=== PATIENT | female | born 1995 | race Caucasian/White ===

== ENCOUNTER 2020-10-13 15:06 | Emergency (ER) | payer OTHER, SELFPAY ==
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
[2020-10-13 15:16] VITALS: BP 133/81; PULSE 90; RESP 16; TEMP 36.4; O2SAT 100
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
[2020-10-13] MEDS: ACETAMINOPHEN 500 MG TABLET 1000 MG PO (16:35)
[2020-10-13] MEDS: ONDANSETRON HCL ODT 4 MG TABLET PO (16:36)
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
[2020-10-13 17:11] VITALS: BP 114/65; PULSE 72; RESP 16; TEMP 37.3; O2SAT 99
== END 2020-10-13 17:10 | disposition home or self-care (01) ==
PROVIDERS: Emergency Provider Emergency Medicine; PCP Emergency Medicine
DX: M62.838 Other muscle spasm (principal); S80.01XA Contusion of right knee, initial encounter; V43.52XA Car driver injured in collision with other type car in traffic accident, initial encounter
CPT/HCPCS: 73562; 99283; A9270

== ENCOUNTER 2021-01-18 08:57 | Emergency (ER) | payer OTHER, SELFPAY ==
[2021-01-18 09:30] VITALS: BP 121/73; PULSE 74; RESP 16; TEMP 36.6; O2SAT 99
--- NOTE | 2021-01-18 09:30 | ED.GENADULT ---
HPI - General Adult General Chief complaint: Skin/Abscess/Foreign Body Stated complaint: lump on back Time Seen by Provider: 01/18/21 09:30 Source: patient and RN notes reviewed Mode of arrival: ambulatory Limitations: no limitations History of Present Illness HPI narrative: 25-year-old female presents with complaints of with redness, tenderness, and swelling to right upper back for the past 5 days. Kiara reports increasing tenderness over the past 5 days. No treatment. Tender to touch. No drainage. History of skin abscess. No fever or chills. No abdominal pain, nausea, and vomiting. Tolerating po intake well. LMP 01/09/2021. Remains active. The patient reports she was diagnosed with COVID-16 July 2020, no recent symptoms. The patient reports she is not waiting for the results of a COVID-19 lab test. The patient reports she do not have weakness or fatigue. The patient reports she do not have a new or worsening cough or shortness of breath. Denies chest pain. The patient reports she do not have any rhinorrhea, congestion, sore throat, loss of taste or smell, and diarrhea. Denies recent traveling. Denies concerns for COVID-19 or exposures been home with limited outdoor exposure except for essential household needs, work, and return home. At this time, patient is not suspected of having COVID-19. Some parts of this dictation were generated by voice recognition software and may contain typographical and/or grammatical inaccuracies. Related Data Allergies Allergy/AdvReac Type Severity Reaction Status Date / Time codeine Allergy Unknown Anxiety Verified 01/18/21 09:22 Contrast Media Allergy Mild Rash Uncoded 01/18/21 09:22 Review of Systems Review of Systems: Narrative: CONSTITUTIONAL: Denies fever, chills, sweats. EYES: Denies visual changes, redness, discharge. ENT: Denies rhinorrhea, congestion, sore throat, otalgia. CARDIOVASCULAR: Denies chest pain, palpitations, edema. RESPIRATORY: Denies dyspnea, wheezing, cough. GASTROINTESTINAL: Denies abdominal pain, nausea, vomiting, diarrhea. SKIN: Denies rash or itching. Right upper back with redness, tenderness, swelling. Denies drainage. MUSCULOSKELETAL: Denies acute back pain, joint pain, or myalgia. NEUROLOGIC: Denies numbness or focal weakness. PSYCHIATRIC: Denies anxiety or depression. All systems reviewed & are unremarkable except as noted in HPI and below. [facility] Past Medical History Medical History (Updated 01/19/21 @ 00:00 by Dinah Mendoza) Anxiety Depression Insomnia PTSD (post-traumatic stress disorder) Surgical History Surgical History (Updated 01/18/21 @ 09:47 by PATRIZIA Kwok) History of cholecystectomy Family History Family History Other Diabetes mellitus Hypertension Social History Social History (Updated 01/18/21 @ 09:47 by PATRIZIA Kwok) Smoking status: Never smoker Tobacco type: cigarettes Second hand tobacco smoke exposure: No Alcohol intake: current Substance use: never Living arrangements: with family Occupation/Education: occupation Gender identity (if verbalized by the patient): Female Sexual Orientation (if Verbalized by the Patient): Straight or Heterosexual Comments At time of signature, I have reviewed and agree with nursing past medical, surgical, social, and family history. Please see nursing chart for further information. There is no relevant family history pertinent to the presenting complaint. Exam Narrative: Exam Narrative: GENERAL: This is a well-nourished, well-developed patient, in no apparent distress. Talking in full sentences without deficit and ambulate with steady gait without dyspnea. HEAD: Normocephalic, atraumatic. EYES: PERRL. Sclera clear/white. Vision is grossly intact. NECK: Neck supple, non-tender without lymphadenopathy, masses or thyromegaly. CARDIOVASCULAR: Regular rate and rhythm without murmurs
== END 2021-01-18 09:56 | disposition home or self-care (01) ==
PROVIDERS: Emergency Provider Nurse Practitioner Family; PCP Emergency Medicine
DX: L98.9 Disorder of the skin and subcutaneous tissue, unspecified (principal); F41.9 Anxiety disorder, unspecified; F32.9 Major depressive disorder, single episode, unspecified
CPT/HCPCS: 99213; G0463

== ENCOUNTER 2022-05-25 12:08 | Emergency (ER) | payer OTHER, SELFPAY ==
[2022-05-25 12:26] VITALS: BP 123/75; PULSE 79; RESP 18; TEMP 37; O2SAT 100
--- NOTE | 2022-05-25 12:38 | ED.URI ---
HPI - URI/Sore Throat General Chief Complaint: Upper Respiratory Infection Stated Complaint: Sore Throat,Headache,Cough Time Seen by Provider: 05/25/22 12:30 History of Present Illness HPI Narrative: Kiara Chowdary is a 26 yo female with a PMH of ADD, anxiety, PTSD, [facility] sore throat runny nose cough and generally not feeling well for the last 3 to 4 days. She was also travel for work and took a COVID rapid test on Saturday which is negative but came here for retesting as she has a large she is supposed to attend on Saturday Had Covid vaccine Related Data Allergies Allergy/AdvReac Type Severity Reaction Status Date / Time codeine Allergy Unknown Anxiety Verified 05/25/22 12:20 Contrast Media Allergy Mild Rash Uncoded 05/25/22 12:20 Review of Systems Review of Systems: CONSTITUTIONAL: Denies fever, chills, sweats. EYES: Denies visual changes, redness, discharge. ENT: Denies rhinorrhea, has congestion, has sore throat, otalgia. CARDIOVASCULAR: Denies chest pain, palpitations, edema. RESPIRATORY: Denies dyspnea, wheezing, has cough GASTROINTESTINAL: Denies abdominal pain, nausea, vomiting, diarrhea. GENITOURINARY: Denies dysuria, hematuria, abnormal discharge SKIN: Denies rash or itching. NEUROLOGIC: Denies numbness, or focal weakness. PSYCHIATRIC: Denies anxiety or depression. [facility] Past Medical History Medical History Anxiety Depression Insomnia PTSD (post-traumatic stress disorder) Surgical History Surgical History History of cholecystectomy Family History Family History Other Diabetes mellitus Hypertension Social History Social History Smoking status: Never smoker Tobacco type: cigarettes Second hand tobacco smoke exposure: No Alcohol intake: current Substance use: never Gender identity (if verbalized by the patient): Female Sexual Orientation (if Verbalized by the Patient): Straight or Heterosexual Comments At time of signature, I agree with nursing past medical, surgical, social and family history. There is no relevant family history pertinent to the presenting complaint. Exam Narrative: GENERAL: This is a well-nourished, well-developed patient, in mild distress. HEAD: normocephalic, atraumatic. EYES: Sclera clear/white. Vision is grossly intact. EARS: External ears normal, auditory canals erythema and without drainage, TMs normal without perforation. Hearing grossly intact. NOSE: External nose normal with nasal discharge, nares without redness, has rhinorrhea. THROAT: Mucous membranes moist, posterior pharynx mild erythema NECK: Neck supple, non-tender CARDIOVASCULAR: Regular rate and rhythm without murmurs, gallops, or rubs. RESPIRATORY: Clear to auscultation. Breath sounds equal bilaterally. No wheezes, rales, or rhonchi. GASTROINTESTINAL: Not done SKIN: warm, intact with no suspicious lesions or rash, good texture and turgor. NEURO: awake, alert, and oriented to person, place and time. There were no obvious focal neurologic abnormalities. Steady gait EXTREMITIES: Normal range of motion. BACK: Nontender without deformity Course Course Emergency Course: Patient comes in symptoms of COVID-like illness including nasal discharge rhinorrhea sore throat and generally not feeling well fatigue COVID test here was positive Discussed that she is to isolate for 5 days and may then mask for 5 days when she leaves she is vaccinated last year has not yet received boosters Given Tessuzi Verma, Sudafed, albuterol inhaler Level of Care: Express Care Visit Vital Signs Vital signs: Vital Signs Temperature 98.6 F 05/25/22 12:26 Pulse Rate 79 05/25/22 12:26 Respiratory Rate 18 05/25/22 12:26 Blood Pressure 123/75 05/25/22 12:2
== END 2022-05-25 12:50 | disposition home or self-care (01) ==
PROVIDERS: Emergency Provider Nurse Practitioner; PCP Emergency Medicine
DX: U07.1 COVID-19 (principal)
CPT/HCPCS: 87426; 99213; C9803; G0463

== ENCOUNTER 2022-07-06 13:06 | Emergency (ER) | payer OTHER, SELFPAY ==
[2022-07-06 13:15] VITALS: BP 120/72; PULSE 94; RESP 18; TEMP 36.7; O2SAT 100
--- NOTE | 2022-07-06 13:27 | ED.GENADULT ---
HPI - General Adult General Chief complaint: Upper Respiratory Infection Stated complaint: Sore Throat,Cough History of Present Illness HPI narrative: 26 y/o female. PMHx FELIX, MDD, PTSD. Presents to local [facility] today w/acute complaints of sore throat & cough for the past 48 hours. She reports to have had recently been ill w/Covid 19 viral illness respectively 5 weeks ago, had improved and felt fine once more, and now is developing throat irritation. No fevers. No EWING, neck pain or stiffness. No dysphagia or involuntary drooling. Mild nasal congestion and non-productive cough. No chest pain, palpitations, dyspnea, wheezing. Non-smoker, never smoked. She is concerned for possible strep throat 2/2 a report of frequent historical streptococcal throat infections. Client is without additional acute c/o upon PE. Related Data Home Medications Medication Instructions Recorded Confirmed sertraline 50 mg tablet (Zoloft) 50 mg PO DAILY 07/06/22 07/06/22 Allergies Allergy/AdvReac Type Severity Reaction Status Date / Time codeine Allergy Unknown Anxiety Verified 07/06/22 13:48 Contrast Media Allergy Mild Rash Uncoded 07/06/22 13:48 Review of Systems Review of Systems: CONSTITUTIONAL: Denies fever, chills, sweats. EYES: Denies visual changes, redness, discharge. ENT: Denies rhinorrhea, congestion, otalgia. + Sore throat. CARDIOVASCULAR: Denies chest pain, palpitations, edema. RESPIRATORY: Denies dyspnea, wheezing. + Cough. GASTROINTESTINAL: Denies abdominal pain, nausea, vomiting, diarrhea. GENITOURINARY: Denies dysuria, hematuria, abnormal discharge SKIN: Denies rash or itching. MUSCULOSKELETAL: Denies acute back pain, joint pain, or myalgia. NEUROLOGIC: Denies numbness, or focal weakness. PSYCHIATRIC: Denies anxiety or depression. [facility] Past Medical History Medical History Anxiety Depression Insomnia PTSD (post-traumatic stress disorder) Surgical History Surgical History History of cholecystectomy Family History Family History Other Diabetes mellitus Hypertension Social History Social History Smoking status: Never smoker Tobacco type: cigarettes Second hand tobacco smoke exposure: No Alcohol intake: current Substance use: never Gender identity (if verbalized by the patient): Female Sexual Orientation (if Verbalized by the Patient): Straight or Heterosexual Exam Narrative: GENERAL: This is a well-nourished, well-developed adult, in no apparent distress. HEAD: normocephalic. EYES: Sclera clear/white. EARS: External ears normal, auditory canals clear and without drainage, TMs normal. NOSE: External nose normal. Positive Rhinorrhea, no obstruction, nares patent. THROAT: Mucous membranes moist, posterior pharynx erythematous, No exudative changes. NECK: Neck supple, non-tender without lymphadenopathy, masses or thyromegaly. CARDIOVASCULAR: Regular rate and rhythm without murmurs, gallops, or rubs. RESPIRATORY: Clear to auscultation. Breath sounds equal bilaterally. No wheezes, rales, or rhonchi. GASTROINTESTINAL: Abdomen soft, non-tender. SKIN: warm, intact. NEURO: Alert, active, and age appropriate. Course Course Level of Care: Express Care Visit Vital Signs Vital signs: Vital Signs Temperature 36.7 C 07/06/22 13:15 Pulse Rate 94 07/06/22 13:15 Respiratory Rate 18 07/06/22 13:15 Blood Pressure 120/72 07/06/22 13:15 Pulse Oximetry 100 07/06/22 13:15 Oxygen Delivery Room Air 07/06/22 13:15 Temperature 36.7 C 07/06/22 13:15 Pulse Rate 94 07/06/22 13:15 Respiratory Rate 18 07/06/22 13:15 Blood Pressure 120/72 07/06/22 13:15 Pulse Oximetry 100 07/06/22 13:15 Oxygen Delivery Room Air
== END 2022-07-06 14:00 | disposition home or self-care (01) ==
PROVIDERS: Emergency Provider Nurse Practitioner Adult Health; PCP Emergency Medicine
DX: J02.9 Acute pharyngitis, unspecified (principal); F41.9 Anxiety disorder, unspecified; F32.A Depression, unspecified
CPT/HCPCS: 87081; 87880; 99213; G0463